=== PATIENT | male | born 1995 | race Caucasian/White ===

== ENCOUNTER 2018-08-22 14:19 | Emergency (ER) | payer MEDICAID, OTHER ==
[~2018-08-22] VITALS: Ht 190.5 cm; Wt 104.3 kg
[2018-08-22] MEDS ORDERED: SODIUM CHLORIDE 0.9% 1,000 ML IV ONE (14:28)
[2018-08-22] MEDS ORDERED: cefTRIAXone 1GM/50ML D5W 50 ML IV ONE (14:30)
[2018-08-22] MEDS ORDERED: IOHEXOL 300 MG/ML 100ML BOTTLE IJ ONE (14:39)
[2018-08-22 14:53] LABS: Basophils # (auto) 0 uL; Basophils % (auto) 0.4 % (0.0-2.0); Eosinophils # (auto) 0 uL; Eosinophils % (auto) 0.4 % (0.0-7.0); Hematocrit 46.2 % (41.0-53.0); Hemoglobin 15.3 g/dL (13.5-17.5); Lymphocytes # (auto) 3.6 uL; Lymphocytes % (auto) 40.2 % (10.0-50.0); Mean Corpuscular Hemoglobin 30.9 pg (28.0-32.0); Mean Corpuscular Volume 93.5 fL (80.0-100.0); Monocytes # (auto) 0.7 uL; Monocytes % (auto) 7.4 % (0.0-12.0); Neutrophils # (auto) 4.6 uL; Neutrophils % (auto) 51.6 % (37.0-80.0); Nucleated Red Blood Cells % 0.1 %; Platelet Count (auto) 233 10^3/uL (140-450); Red Blood Cells 4.94 10^6/uL (4.5-5.90); Red Cell Distribution Width 14.1 % (11.8-14.3); White Blood Cell 8.9 10^3/uL (4.4-10.8)
[2018-08-22 15:08] LABS: BUN/Creatinine Ratio 13.9; Calcium 8.7 mg/dL (8.5-10.1); Magnesium 2.1 mg/dL (1.6-2.6); Potassium 3.4 mmol/L (3.5-5.1)
[2018-08-22 15:11] LABS: Bilirubin, Total 0.3 mg/dL (0.2-1.0); Total Protein 8.3 g/dL (6.4-8.2)
[2018-08-22] MEDS ORDERED: PROMETHAZINE HCL 25 MG/ML 1ML IV ONE (16:00)
[2018-08-22] MEDS ORDERED: MORPHINE SULFATE 4 MG/ML SYR/VIAL IV ONE (16:00)
[2018-08-22] MEDS ORDERED: LIDOCAINE 2%HCL (LOCAL ANESTH.) INJ 20ML MDV ID ONE (16:15)
[2018-08-22] MEDS ORDERED: BACITRACIN TOP OINT 1 UD PKG TOP ONE (16:15)
[2018-08-22 16:27] LABS: Urine WBC None Seen /hpf (0 - 3)
[2018-08-22] MEDS ORDERED: LIDOCAINE 2% (LOCAL ANESTH.) PF 5ml SDV ONE ×2 (16:30→17:26)
[2018-08-22] MEDS ORDERED: POTASSIUM EFFERVESENT TAB 25 MEQ PO ONE (16:30)
[2018-08-22 16:38] LABS: Urine Bacteria NONE SEEN /hpf (None Seen); Urine Blood Negative /uL (Negative); Urine Specific Gravity 1.034 (1.001-1.035)
[2018-08-22 17:00] VITALS: BP 127/80
== END 2018-08-22 18:21 | disposition home or self-care (01) ==
LOC: ER 14:22
DX: S31.119A Laceration without foreign body of abdominal wall, unspecified quadrant without penetration into peritoneal cavity, initial encounter (principal); E87.6 Hypokalemia; W26.0XXA Contact with knife, initial encounter; Y93.79 Activity, other specified sports and athletics; Y92.89 Other specified places as the place of occurrence of the external cause; Y99.8 Other external cause status
CPT/HCPCS: 12002; 36415; 74177; 80053; 81001; 83690; 83735; 85025; 96365; 96366; 96375; 99284; J0696; J2001; J2270; J2550; J7030; Q9967

== ENCOUNTER 2023-11-25 22:26 | Emergency (ER) | payer SELFPAY ==
[~2023-11-25] VITALS: Ht 195.6 cm; Wt 2.0 kg
[2023-11-25 22:26] VITALS: BP 118/85; PULSE 101; RESP 15; TEMP 98.6; O2SAT 98
[2023-11-25] MEDS: KETOROLAC TROMETH 60MG/2ML VIAL IM ONE (23:51)
[2023-11-25] MEDS: TETANUS-DIPTH-ACEL PERTUSSIS 0.5ML SYR Tdap IM ONE (23:55)
[2023-11-26] MEDS: MECLIZINE HCL 25 MG TAB PO ONE (00:17)
[2023-11-26] MEDS: HYDROcodone-ACET 10/325MG TAB PO ONE (00:18)
[2023-11-26] MEDS ORDERED: IBUP-1456 PO (00:23)
[2023-11-26] MEDS ORDERED: HYDR-4902 PO (00:23)
== END 2023-11-26 00:43 | disposition home or self-care (01) ==
LOC: ER 22:26 → EDBD 22:26 → ER 11-26 00:43
DX: S01.01XA Laceration without foreign body of scalp, initial encounter (principal); Z79.899 Other long term (current) drug therapy; Y04.2XXA Assault by strike against or bumped into by another person, initial encounter; Y93.E2 Activity, laundry; Y92.59 Other trade areas as the place of occurrence of the external cause; Y99.8 Other external cause status
CPT/HCPCS: 12002; 70450; 72125; 90471; 90715; 96372; 99285; J1885; J8597

== ENCOUNTER 2023-12-05 17:22 | Emergency (ER) | payer SELFPAY ==
[~2023-12-05] VITALS: Ht 195.6 cm; Wt 124.8 kg
[~2023-12-05 17:22] MED LIST: HYDR-4902 PO; IBUP-1456 PO
[2023-12-05 19:40] VITALS: BP 123/80; PULSE 95; RESP 18; TEMP 98.1; O2SAT 98
[2023-12-05] MEDS: ONDANSETRON ODT 4 MG TAB PO ONE (20:01)
[2023-12-05] MEDS: IBUPROFEN 800 MG TAB PO ONE (20:01)
== END 2023-12-05 20:49 | disposition left against medical advice (07) ==
LOC: ER 17:22
DX: Z48.01 Encounter for change or removal of surgical wound dressing (principal); F07.81 Postconcussional syndrome; R51.9 Headache, unspecified
CPT/HCPCS: 99283; Q0162